=== PATIENT | female | born 1995 | race Caucasian/White ===

== ENCOUNTER → 2018-11-03 11:23 | Outpatient (CLI) | payer OTHER ==
[2018-11-03 12:38] LABS: UDS - AMPHET NEGATIVE QUAL (NEGATIVE); UDS - BARB NEGATIVE QUAL (NEGATIVE); UDS - BENZO NEGATIVE QUAL (NEGATIVE); UDS - COCAINE NEGATIVE QUAL (NEGATIVE); UDS - OPIATE NEGATIVE QUAL (NEGATIVE); UDS - PCP NEGATIVE QUAL (NEGATIVE); UDS - THC NEGATIVE QUAL (NEGATIVE)
[2018-11-03 12:47] LABS: APPEARANCE HAZY (CLEAR); BILIRUBIN NEGATIVE (NEGATIVE); COLOR YELLOW (YELLOW); GLUCOSE NEGATIVE (NEGATIVE); KETONE NEGATIVE (NEGATIVE); NITRITE NEGATIVE (NEGATIVE); PROTEIN NEGATIVE (NEGATIVE); SPECIFIC GRAVITY 1.015 (1.005-1.020)
[2018-11-03 12:48] LABS: BACTERIA FEW /hpf (NONE SEEN); EPITHELIAL CELLS OCC /hpf (0-5); WHITE CELLS - URINE 0-5 /hpf (0-5)
[2018-11-03 14:35] LABS: HEMATOCRIT 22.3 % (36.0-48.0); MCHC 28.3 g/dL (31.0-37.0); MEAN PLATELET VOLUME 10.6 fL (7.4-10.4); RBC 3.23 10x6/uL (4.00-5.40); RDW 19.9 % (11.5-14.5); WBC 12.2 10x3/uL (4.8-10.8)
[2018-11-03 14:36] LABS: HEMOGLOBIN 6.3 g/dL (12-16); MCH 19.5 pg (26.0-34.0)
[2018-11-04 07:23] LABS: RAPID PLASMA REAGIN Non Reactive (Non Reactive)
[2018-11-04 08:15] LABS: HEPATITIS C ANTIBODY <0.1 S/CO RAT (0.0-0.9)
[2018-11-04 15:12] LABS: HGB SOLUBILITY (SICKLE SCREEN) Negative (Negative)
== END | disposition home or self-care (01) ==
LOC: D.LDO 11:23
PROVIDERS: ATTEND Obstetrics & Gynecology
DX: O26.893 Other specified pregnancy related conditions, third trimester (principal); Z3A.32 32 weeks gestation of pregnancy

== ENCOUNTER → 2018-11-08 12:05 | Outpatient (CLI) | payer OTHER ==
[2018-11-08 13:27] LABS: HEMATOCRIT 24.5 % (36.0-48.0); MCHC 27.8 g/dL (31.0-37.0); MCV 70.2 fL (80.0-100.0); MEAN PLATELET VOLUME 10.5 fL (7.4-10.4); RBC 3.49 10x6/uL (4.00-5.40); RDW 21.3 % (11.5-14.5); WBC 15.9 10x3/uL (4.8-10.8)
[2018-11-08 13:39] LABS: CALC OSMOLALITY 269 mosm/kg (275-300); CALCIUM 8.6 mg/dL (8.5-10.1); CARBON DIOXIDE 22.2 mmol/L (21.0-32.0); CHLORIDE - SERUM 103 mmol/L (98-107); CREATININE - SERUM 0.5 mg/dL (0.6-1.3); GLUCOSE 78 mg/dL (74-106); HEMOGLOBIN 6.8 g/dL (12-16); MCH 19.5 pg (26.0-34.0); POTASSIUM - SERUM 4.3 mmol/L (3.5-5.1); SODIUM 135 mmol/L (136-145); UREA NITROGEN 15 mg/dL (7-18); URIC ACID 3.3 mg/dL (2.6-7.2); eGFR NON AFRICAN AMERICAN > 90 mL/min (90-120)
[2018-11-10 18:35] LABS: PROTEIN - URINE 22.8 mg/dL (0.0-11.9)
== END | disposition home or self-care (01) ==
LOC: D.LDO 12:05
PROVIDERS: ATTEND Obstetrics & Gynecology
DX: O99.019 Anemia complicating pregnancy, unspecified trimester (principal); Z3A.00 Weeks of gestation of pregnancy not specified

== ENCOUNTER → 2018-11-12 11:46 | Outpatient (CLI) | payer OTHER ==
[2018-11-12 12:46] LABS: BASOPHILS 0.4 % (0-2); EOSINOPHILS 1.5 % (0-7); HEMATOCRIT 29.8 % (36.0-48.0); HEMOGLOBIN 8.7 g/dL (12-16); IMMATURE GRANULOCYTES 0.8 % (0-5); LYMPHOCYTES 16.3 % (15-50); MCH 21.8 pg (26.0-34.0); MCHC 29.2 g/dL (31.0-37.0); MCV 74.5 fL (80.0-100.0); MEAN PLATELET VOLUME 10.5 fL (7.4-10.4); MONOCYTES 8.6 % (2-11); NEUTROPHILS 72.4 % (40-80); PLATELET COUNT 339 10x3/uL (130-400); RDW 24.1 % (11.5-14.5); WBC 13.7 10x3/uL (4.8-10.8)
[2018-11-12 13:02] LABS: ALBUMIN 2.2 g/dL (3.4-5.0); ALKALINE PHOSPHATASE 199 U/L (46-116); ALT (SGPT) 33 U/L (10-68); BILIRUBIN - INDIRECT 0.14 mg/dL (0.00-1.00); BILIRUBIN - TOTAL 0.24 mg/dL (0.2-1.3); CALC OSMOLALITY 265 mosm/kg (275-300); CALCIUM 8.3 mg/dL (8.5-10.1); CARBON DIOXIDE 22.9 mmol/L (21.0-32.0); CHLORIDE - SERUM 102 mmol/L (98-107); CREATININE - SERUM 0.5 mg/dL (0.6-1.3); GLUCOSE 85 mg/dL (74-106); POTASSIUM - SERUM 3.7 mmol/L (3.5-5.1); PROTEIN - SERUM 6.6 g/dL (6.4-8.2); SODIUM 134 mmol/L (136-145); UREA NITROGEN 9 mg/dL (7-18); URIC ACID 3.6 mg/dL (2.6-7.2); eGFR NON AFRICAN AMERICAN > 90 mL/min (90-120)
== END | disposition home or self-care (01) ==
LOC: D.LDO 11:46
PROVIDERS: ATTEND Obstetrics & Gynecology
DX: O26.893 Other specified pregnancy related conditions, third trimester (principal); Z3A.33 33 weeks gestation of pregnancy

== ENCOUNTER 2018-11-16 17:00 | Outpatient (CLI) | payer OTHER ==
--- NOTE | 2018-11-16 17:00 | NUR ---
dr whyte in unit- informed that pt has voided 50ccx1 and recently voided 100cc. states that pt may want to drink more. no new orders.
--- NOTE | 2018-11-16 17:33 | NUR ---
pt co scd's feeling tight now.
[2018-11-16 17:51] LABS: BASOPHILS 0.2 % (0-2); EOSINOPHILS 1.1 % (0-7); HEMATOCRIT 29.6 % (36.0-48.0); HEMOGLOBIN 8.7 g/dL (12-16); IMMATURE GRANULOCYTES 0.7 % (0-5); LYMPHOCYTES 17.5 % (15-50); MCH 21.9 pg (26.0-34.0); MCHC 29.4 g/dL (31.0-37.0); MCV 74.4 fL (80.0-100.0); MEAN PLATELET VOLUME 10.4 fL (7.4-10.4); MONOCYTES 8.9 % (2-11); NEUTROPHILS 71.6 % (40-80); PLATELET COUNT 312 10x3/uL (130-400); RBC 3.98 10x6/uL (4.00-5.40); RDW 24.9 % (11.5-14.5)
[2018-11-16 18:03] LABS: ALBUMIN 2.4 g/dL (3.4-5.0); ALKALINE PHOSPHATASE 186 U/L (46-116); ALT (SGPT) 17 U/L (10-68); BILIRUBIN - TOTAL 0.28 mg/dL (0.2-1.3); CALC OSMOLALITY 267 mosm/kg (275-300); CALCIUM 8.8 mg/dL (8.5-10.1); CARBON DIOXIDE 20.1 mmol/L (21.0-32.0); CHLORIDE - SERUM 101 mmol/L (98-107); CREATININE - SERUM 0.5 mg/dL (0.6-1.3); GLUCOSE 93 mg/dL (74-106); POTASSIUM - SERUM 3.7 mmol/L (3.5-5.1); PROTEIN - SERUM 7.1 g/dL (6.4-8.2); SODIUM 134 mmol/L (136-145); UREA NITROGEN 12 mg/dL (7-18); eGFR NON AFRICAN AMERICAN > 90 mL/min (90-120)
[2018-11-16 18:09] LABS: BILIRUBIN - DIRECT 0.07 mg/dL (0.00-0.30); BILIRUBIN - INDIRECT 0.21 mg/dL (0.00-1.00); URIC ACID 3.4 mg/dL (2.6-7.2)
[2018-11-19] MEDS ORDERED: PRENAVITE1 TAB PO (22:58)
[2018-11-19] MEDS ORDERED: ACETAMINOPHEN325 MG (22:59)
== END 2018-11-17 18:25 | disposition home or self-care (01) ==
LOC: D.LABREF 17:00 → D.LD 17:00 → D.LABREF 11-17 18:25
PROVIDERS: ATTEND Obstetrics & Gynecology
DX: O16.3 Unspecified maternal hypertension, third trimester (principal); Z3A.34 34 weeks gestation of pregnancy

== ENCOUNTER → 2018-11-19 09:46 | Outpatient (CLI) | payer OTHER ==
[~2018-11-19 09:46] MED LIST: ACETAMINOPHEN325 MG; PRENAVITE1 TAB PO
== END | disposition home or self-care (01) ==
LOC: D.LDO 09:46
PROVIDERS: ATTEND Obstetrics & Gynecology
DX: O16.3 Unspecified maternal hypertension, third trimester (principal); Z3A.34 34 weeks gestation of pregnancy

== ENCOUNTER → 2018-11-19 20:32 | Outpatient (CLI) | payer OTHER ==
[2018-11-19 21:33] LABS: UDS - AMPHET NEGATIVE QUAL (NEGATIVE); UDS - BARB NEGATIVE QUAL (NEGATIVE); UDS - BENZO NEGATIVE QUAL (NEGATIVE); UDS - COCAINE NEGATIVE QUAL (NEGATIVE); UDS - OPIATE NEGATIVE QUAL (NEGATIVE); UDS - PCP NEGATIVE QUAL (NEGATIVE); UDS - THC NEGATIVE QUAL (NEGATIVE)
[2018-11-19 21:37] LABS: APPEARANCE CLEAR (CLEAR); BILIRUBIN NEGATIVE (NEGATIVE); COLOR YELLOW (YELLOW); GLUCOSE NEGATIVE (NEGATIVE); KETONE NEGATIVE (NEGATIVE); NITRITE NEGATIVE (NEGATIVE); PROTEIN NEGATIVE (NEGATIVE); UROBILINOGEN NORMAL (NORMAL)
[2018-11-19 21:38] LABS: BACTERIA MANY /hpf (NONE SEEN); EPITHELIAL CELLS 0-5 /hpf (0-5); RED CELLS - URINE 0-5 /hpf (0-5); WHITE CELLS - URINE 0-5 /hpf (0-5)
[2018-11-19 21:45] LABS: HEMATOCRIT 31.6 % (36.0-48.0); HEMOGLOBIN 9.3 g/dL (12-16); MCH 22.5 pg (26.0-34.0); MCHC 29.4 g/dL (31.0-37.0); MCV 76.5 fL (80.0-100.0); RBC 4.13 10x6/uL (4.00-5.40); RDW 24.4 % (11.5-14.5); WBC 13.2 10x3/uL (4.8-10.8)
[2018-11-19 22:08] LABS: CALC OSMOLALITY 273 mosm/kg (275-300); CALCIUM 8.4 mg/dL (8.5-10.1); CARBON DIOXIDE 21.9 mmol/L (21.0-32.0); CHLORIDE - SERUM 103 mmol/L (98-107); CREATININE - SERUM 0.5 mg/dL (0.6-1.3); GLUCOSE 93 mg/dL (74-106); POTASSIUM - SERUM 3.8 mmol/L (3.5-5.1); SODIUM 137 mmol/L (136-145); UREA NITROGEN 12 mg/dL (7-18); URIC ACID 3.5 mg/dL (2.6-7.2); eGFR NON AFRICAN AMERICAN > 90 mL/min (90-120)
== END | disposition home or self-care (01) ==
LOC: D.LDO 20:32
PROVIDERS: ATTEND Obstetrics & Gynecology
DX: O26.893 Other specified pregnancy related conditions, third trimester (principal); Z3A.34 34 weeks gestation of pregnancy; R11.0 Nausea

== ENCOUNTER → 2018-11-24 13:53 | Outpatient (CLI) | payer OTHER ==
[~2018-11-24 13:53] MED LIST changes: +NORMODYNE / TR100 MG PO
[2018-11-24 14:52] LABS: BASOPHILS 0.3 % (0-2); EOSINOPHILS 1.2 % (0-7); HEMATOCRIT 34.3 % (36.0-48.0); HEMOGLOBIN 10.4 g/dL (12-16); IMMATURE GRANULOCYTES 0.5 % (0-5); MCH 23.4 pg (26.0-34.0); MCHC 30.3 g/dL (31.0-37.0); MCV 77.1 fL (80.0-100.0); MEAN PLATELET VOLUME 10.4 fL (7.4-10.4); PLATELET COUNT 273 10x3/uL (130-400); RBC 4.45 10x6/uL (4.00-5.40); RDW 25.8 % (11.5-14.5); WBC 13.9 10x3/uL (4.8-10.8)
[2018-11-24 15:09] LABS: ALBUMIN 2.4 g/dL (3.4-5.0); ALKALINE PHOSPHATASE 180 U/L (46-116); ALT (SGPT) 17 U/L (10-68); BILIRUBIN - TOTAL 0.33 mg/dL (0.2-1.3); CALC OSMOLALITY 265 mosm/kg (275-300); CALCIUM 9.2 mg/dL (8.5-10.1); CARBON DIOXIDE 23.5 mmol/L (21.0-32.0); CHLORIDE - SERUM 101 mmol/L (98-107); CREATININE - SERUM 0.4 mg/dL (0.6-1.3); GLUCOSE 73 mg/dL (74-106); POTASSIUM - SERUM 3.9 mmol/L (3.5-5.1); PROTEIN - SERUM 7.3 g/dL (6.4-8.2); SODIUM 134 mmol/L (136-145); UREA NITROGEN 11 mg/dL (7-18); eGFR NON AFRICAN AMERICAN > 90 mL/min (90-120)
[2018-11-24 15:10] LABS: BILIRUBIN - DIRECT 0.08 mg/dL (0.00-0.30); BILIRUBIN - INDIRECT 0.25 mg/dL (0.00-1.00); URIC ACID 3.4 mg/dL (2.6-7.2)
[2018-11-24 15:24] LABS: UDS - AMPHET NEGATIVE QUAL (NEGATIVE); UDS - BARB NEGATIVE QUAL (NEGATIVE); UDS - BENZO NEGATIVE QUAL (NEGATIVE); UDS - COCAINE NEGATIVE QUAL (NEGATIVE); UDS - OPIATE NEGATIVE QUAL (NEGATIVE); UDS - PCP NEGATIVE QUAL (NEGATIVE); UDS - THC NEGATIVE QUAL (NEGATIVE)
[2018-11-24 15:36] LABS: APPEARANCE CLEAR (CLEAR); BILIRUBIN NEGATIVE (NEGATIVE); COLOR YELLOW (YELLOW); GLUCOSE NEGATIVE (NEGATIVE); KETONE NEGATIVE (NEGATIVE); NITRITE NEGATIVE (NEGATIVE); PROTEIN NEGATIVE (NEGATIVE); UROBILINOGEN NORMAL (NORMAL)
[2018-11-24 15:37] LABS: BACTERIA MODERATE /hpf (NONE SEEN); EPITHELIAL CELLS OCC /hpf (0-5); WHITE CELLS - URINE 0-5 /hpf (0-5)
[2018-11-26 19:25] LABS: PROTEIN - URINE 14.6 mg/dL (0.0-11.9)
== END | disposition home or self-care (01) ==
LOC: D.LDO 13:53
PROVIDERS: ATTEND Obstetrics & Gynecology
DX: O16.3 Unspecified maternal hypertension, third trimester (principal); Z3A.35 35 weeks gestation of pregnancy

== ENCOUNTER 2018-11-26 18:49 | Outpatient (CLI) | payer OTHER ==
[~2018-11-26 18:49] MED LIST changes: -NORMODYNE / TR100 MG PO
[2018-11-26 21:04] LABS: BASOPHILS 0.2 % (0-2); HEMATOCRIT 32.5 % (36.0-48.0); HEMOGLOBIN 9.9 g/dL (12-16); IMMATURE GRANULOCYTES 0.6 % (0-5); LYMPHOCYTES 20.9 % (15-50); MCH 23.7 pg (26.0-34.0); MCHC 30.5 g/dL (31.0-37.0); MCV 77.8 fL (80.0-100.0); MEAN PLATELET VOLUME 10.1 fL (7.4-10.4); MONOCYTES 9.1 % (2-11); NEUTROPHILS 68.2 % (40-80); PLATELET COUNT 263 10x3/uL (130-400); RBC 4.18 10x6/uL (4.00-5.40); RDW 25.9 % (11.5-14.5); WBC 12.7 10x3/uL (4.8-10.8)
[2018-11-26 21:17] LABS: ALBUMIN 2.4 g/dL (3.4-5.0); ALKALINE PHOSPHATASE 173 U/L (46-116); ALT (SGPT) 17 U/L (10-68); BILIRUBIN - TOTAL 0.19 mg/dL (0.2-1.3); CALC OSMOLALITY 272 mosm/kg (275-300); CALCIUM 9.2 mg/dL (8.5-10.1); CARBON DIOXIDE 22.3 mmol/L (21.0-32.0); CHLORIDE - SERUM 104 mmol/L (98-107); CREATININE - SERUM 0.5 mg/dL (0.6-1.3); GLUCOSE 85 mg/dL (74-106); POTASSIUM - SERUM 4.1 mmol/L (3.5-5.1); PROTEIN - SERUM 6.3 g/dL (6.4-8.2); SODIUM 137 mmol/L (136-145); UREA NITROGEN 13 mg/dL (7-18); eGFR NON AFRICAN AMERICAN > 90 mL/min (90-120)
== END 2018-11-27 10:23 | disposition home or self-care (01) ==
LOC: D.LDO 18:49 → D.LD 21:52 → D.LDO 11-27 10:23
PROVIDERS: ATTEND Obstetrics & Gynecology
DX: O26.893 Other specified pregnancy related conditions, third trimester (principal); Z3A.36 36 weeks gestation of pregnancy

== ENCOUNTER → 2018-11-27 20:25 | Outpatient (CLI) | payer OTHER ==
[~2018-11-27 20:25] MED LIST changes: +NORMODYNE / TR100 MG PO
== END | disposition home or self-care (01) ==
LOC: D.LDO 20:25
PROVIDERS: ATTEND Obstetrics & Gynecology
DX: O26.893 Other specified pregnancy related conditions, third trimester (principal); Z3A.36 36 weeks gestation of pregnancy

== ENCOUNTER 2018-11-30 15:20 | Inpatient (IN) | payer OTHER ==
[~2018-11-30] VITALS: Ht 162.6 cm; Wt 93.4 kg
[~2018-11-30 15:20] MED LIST changes: -NORMODYNE / TR100 MG PO
[2018-11-30 15:40] LABS: BASOPHILS 0.2 % (0-2); EOSINOPHILS 0.7 % (0-7); HEMATOCRIT 34.1 % (36.0-48.0); HEMOGLOBIN 10.3 g/dL (12-16); MCH 23.8 pg (26.0-34.0); MCHC 30.2 g/dL (31.0-37.0); MCV 78.8 fL (80.0-100.0); MEAN PLATELET VOLUME 10.7 fL (7.4-10.4); MONOCYTES 11.7 % (2-11); NEUTROPHILS 65.4 % (40-80); PLATELET COUNT 281 10x3/uL (130-400); RBC 4.33 10x6/uL (4.00-5.40); RDW 27.3 % (11.5-14.5); WBC 13.9 10x3/uL (4.8-10.8)
[2018-11-30 15:54] LABS: ALT (SGPT) 19 U/L (10-68); CALC OSMOLALITY 275 mosm/kg (275-300); CALCIUM 9.2 mg/dL (8.5-10.1); CARBON DIOXIDE 23.5 mmol/L (21.0-32.0); CHLORIDE - SERUM 103 mmol/L (98-107); CREATININE - SERUM 0.4 mg/dL (0.6-1.3); GLUCOSE 88 mg/dL (74-106); POTASSIUM - SERUM 4.5 mmol/L (3.5-5.1); SODIUM 139 mmol/L (136-145); UREA NITROGEN 9 mg/dL (7-18); URIC ACID 3.6 mg/dL (2.6-7.2); eGFR NON AFRICAN AMERICAN > 90 mL/min (90-120)
--- NOTE | 2018-11-30 19:03 | NUR ---
ADMISSION ASSESSMENT AND HISTORY STARTED
[2018-11-30] MEDS ORDERED: NORMODYNE / TR100 MG PO (19:04)
--- NOTE | 2018-11-30 19:14 | NUR ---
ADMISSION ASSESSMENT COMPLETED, HAD TO REENTER ASSESSMENT AND HISTORY DUE TO PT HAVING 2 ACCOUNT NUMBERS, SEE ACOUNT NUMBER [id number]
[2018-11-30 19:46] LABS: HEMATOCRIT 31.5 % (36.0-48.0); HEMOGLOBIN 9.6 g/dL (12-16); MCH 23.9 pg (26.0-34.0); MCHC 30.5 g/dL (31.0-37.0); MCV 78.4 fL (80.0-100.0); MEAN PLATELET VOLUME 10.1 fL (7.4-10.4); RBC 4.02 10x6/uL (4.00-5.40); RDW 27.3 % (11.5-14.5); WBC 12.7 10x3/uL (4.8-10.8)
[2018-11-30 22:15] VITALS: BP 133/71
--- NOTE | 2018-11-30 22:15 | NUR ---
RECEIVED PT VIA BED FROM [facility] POST C/S PER DR CARDOZA, PT TO ROOM 1278, IV IN RIGHT WRIST AREA WITH NS WITH PITOCIN TO PUMP INFUSING AT 125 ML/HR, FF, ML, U/U, LITE BLEEDING NOTED WITH NO CLOTS, BIKINI INC WITH SMALL DRESSING INTACT WITH SMALL DRAINAGE NOTED, ICE PACK TO ABD, ALANIZ CATH INTACT DRAINING DARK YELLOW URINE, SCD'S CONNECTED TO PUMP AND WORKING PROPERLY, VS INITIATED, PT REQUESTED AND SERVED ICE CHIPS, PT ORIENTED TO ROOM, BED IN LOW POSITION, SIDE RAILS X 2, CALL LIGHT IN REACH
[2018-11-30 22:30] VITALS: BP 133/71
[2018-11-30 22:45] VITALS: BP 143/72
--- NOTE | 2018-11-30 22:45 | NUR ---
PT C/O INC PAIN, INFORMED PT I WILL CHECK TO SEE WHAT IS ORDERED, PT STATES "WITH MY OTHER C/S, I TOOK IBUPROFEN AND IT SEEMED TO REALLY HELP"
[2018-11-30 23:00] VITALS: BP 154/81
--- NOTE | 2018-11-30 23:00 | NUR ---
DR CARDOZA ON UNIT, INFORMED DR CARDOZA PT REPORTED TAKING IBUPROFEN IN PAST AND THAT IT REALLY SEEMED TO HELP, ORDERS RECEIVED FOR TORADOL
--- NOTE | 2018-11-30 23:09 | NUR ---
ADM TORADOL SIVP PER MD ORDERS, SEE EMAR
[2018-11-30 23:30] VITALS: BP 136/84
[2018-11-30 23:48] VITALS: BP 136/92
--- NOTE | 2018-11-30 23:48 | NUR ---
VS FINISHED, BRIAN CARE DONE WITH WET WARM WASH CLOTHS, BRIAN PAD AND BLUE CHUX CHANGED, FRESH ICE PACK TO ABD, EMPTIED 600 MLS OF DARK YELLOW URINE FROM ALANIZ, SERVED [place] SODA, SANDWICH TRAY SERVED TO FOB, DENIES FURTHER NEEDS
--- NOTE | 2018-12-01 00:35 | NUR ---
PT HOLDING BABY, RATES INC PAIN 08/15, DENIES NEEDS AT THIS TIME
--- NOTE | 2018-12-01 01:00 | NUR ---
PT SAFETY GLASS INSTALLER LIGHT, REQUESTED AND PROVIDED INK PEN, DENIES FURTHER NEEDS, FOB AT BEDSIDE
--- NOTE | 2018-12-01 02:18 | NUR ---
PT HOLDING BABY, NEW BAG OF NS WITH PITOCIN HUNG PER MD ORDERS, SEE EMAR, SCD'S CONTINUE ON AND WORKING PROPERLY, PT DENIES NEEDS, BED IN LOW POSITION, SIDE RAILS X 2, CALL LIGHT IN REACH
[2018-12-01 02:23] LABS: HEMATOCRIT 31.2 % (36.0-48.0); HEMOGLOBIN 9.5 g/dL (12-16); MCH 23.6 pg (26.0-34.0); MCHC 30.4 g/dL (31.0-37.0); MCV 77.6 fL (80.0-100.0); MEAN PLATELET VOLUME 9.6 fL (7.4-10.4); PLATELET COUNT 243 10x3/uL (130-400); RBC 4.02 10x6/uL (4.00-5.40); RDW 27.1 % (11.5-14.5); WBC 20.4 10x3/uL (4.8-10.8)
[2018-12-01 02:38] VITALS: BP 127/74; Ht 162.6 cm; Wt 93.4 kg
--- NOTE | 2018-12-01 02:52 | NUR ---
SUICIDE SCREENING COMPLETE, PT REPORTS ONLY TIME SHE HAD THOUGHT AND ATTEMPTED SUICIDE WAS WHEN SHE WAS 13 YEARS OLD
[2018-12-01 02:53] LABS: LYMPHOCYTES 16 % (15-50); MONOCYTES 1 % (2-11); NEUTROPHILS 83 % (40-80); PLATELET ESTIMATE NORMAL
--- NOTE | 2018-12-01 04:14 | NUR ---
PT IS BOTTLE FEEDING BABY AT THIS TIME, INFORMED PT THAT I WILL COME BACK AND DO VS, PT VERBALIZES UNDERSTANDING
[2018-12-01 05:41] VITALS: BP 131/75
--- NOTE | 2018-12-01 05:41 | NUR ---
PT FILLER FEEDER LIGHT, PT FINISHED BOTTLE FEEDING , VS OBTAINED, BRIAN CARE DONE WITH WET WARM WASH CLOTHS, LITE BLEEDING NOTED WITH NO CLOTS, FRESH ICE PACK TO ABD, I&O'S COLLECTED, SCD'S CONTINUE ON AND WORKING PROPERLY, ADM PERCOCET PO AND TORADOL SIVP PER MD ORDERS, SEE EMAR, PT REQUESTED AND SERVED ICE CHIPS AND FRESH H20, INFANT TO NSY VIA OPEN CRIB CART PER THIS RN, PT DENIES FURTHER NEEDS, FOB AT BEDSIDE
--- NOTE | 2018-12-01 07:00 | NUR ---
SHIFT REPORT TO DAY SHIFT
[2018-12-01 07:41] VITALS: BP 134/74
--- NOTE | 2018-12-01 07:55 | NUR ---
ASSESSMENT DONE. VERBAL RESPONSES APPRO TO QUESTIONS. STATES IS TIRED. STATES SHE SLEPT SOME THIS MORNING. ABD SOFT AND BOWEL SOUNDS PRESENT. SMALL LOCHIA NOTED ON PAD. ICE CAP TO INCISION SITE. DENIES NEEDS AT THIS TIME.
--- NOTE | 2018-12-01 09:43 | NUR ---
RESTING IN BED- INFANT IN ARMS. DENIES NEEDS. REPOSITIONING SELF IN BED.
--- NOTE | 2018-12-01 11:07 | NUR ---
RINGS CALL LIGHT -REQUESTING PAIN MEDICATION- RATES PAIN A 6-7 ON SCALE OF 0-10. MED TO BE GIVEN.
--- NOTE | 2018-12-01 11:11 | NUR ---
MED GIVEN. MOVING ABOUT IN BED. ABD DRESSING CD&I. SCANT LOCHIA NOTED ON PAD.
[2018-12-01 12:31] VITALS: BP 144/90
--- NOTE | 2018-12-01 12:35 | NUR ---
TORADOL GIVEN. VS DONE. PT SITTING UP IN BED HOLDING .
--- NOTE | 2018-12-01 13:05 | NUR ---
REPORT PHONED TO DR CARDOZA- ORDERS RECEIVED TO NORMALIZE PT AND TO START ANTIBIOTICS X 2 DOSES. POC DISCUSSED WITH PT.
--- NOTE | 2018-12-01 13:52 | NUR ---
reg diet served per pt request
--- NOTE | 2018-12-01 14:29 | NUR ---
report of bp's to dr whyte- new orders received.
--- NOTE | 2018-12-01 14:53 | NUR ---
iv changed to saline lock- flushed with ns. joseph cath removed- 2500cc urine emptied from bag. pt instructed to call nurse before getting up.
[2018-12-01 16:03] VITALS: BP 132/86
--- NOTE | 2018-12-01 16:05 | NUR ---
baby in mothers arms. denies needing to void. states is passing flatus.
--- NOTE | 2018-12-01 16:15 | NUR ---
up to bathroom- voided 600cc blood tinged urine. states does not want to shower until family brings conditioner for her hair. partial linen change done. returns to bed. fundus u1/firm. requests pain medication- rates pain a 6 on scale of 0-10. pain med given.
--- NOTE | 2018-12-01 16:26 | NUR ---
baby in mothers arms- feeding infant. states is having some pain both shoulders. states she is passing some gas. o2 sat 97. encourged to moved about more.
--- NOTE | 2018-12-01 16:57 | OP ---
PATIENT NAME: JAMEY DEL CID MEDICAL RECORD: [id number] :94 LOCATION:[id number] ADMISSION DATE:11/30/18 SURGEON: RUSTY CARDOZA MD DATE OF OPERATION: 11/30/2018 PREOPERATIVE DIAGNOSES: 1. Chronic hypertension. 2. Superimposed preeclampsia. 3: at 36 weeks gestational age. 4. History of prior section. 5. Nonreassuring monitoring. POSTOPERATIVE DIAGNOSES: 1. Chronic hypertension. 2. Superimposed preeclampsia. 3: at 36 weeks gestational age. 4. History of prior section. 5. Nonreassuring monitoring. 6. Pelvic adhesions. PROCEDURES: 1. Repeat low transverse section. 2. Lysis of adhesions. SURGEON: Rusty Cardoza MD SOLAR PANEL INSTALLER: Андрей See ANESTHESIOLOGIST: Dr. العلي ANESTHETIC: Spinal. FINDINGS: Viable , vertex presentation, Apgars 8 and 9, weight 2961 grams. Dense adhesions of the uterus to the anterior abdominal wall on the right of midline. What was visualized of the tubes and ovaries unremarkable. SPECIMEN REMOVED: Placenta. SPECIMEN DISPOSITION: Discarded. FLUIDS: 1900 cc of lactated Ringer's. URINE OUTPUT: 100 cc of clear urine. ESTIMATED BLOOD LOSS: 700 cc. DRAINS: Villalobos to gravity. COMPLICATIONS: None. INDICATIONS: The patient is a 23-year-old multiparous female with chronic hypertension, superimposed preeclampsia at 36 weeks' gestation. The patient had noted NST earlier with late decelerations but maintained good beat to beat variability. A biophysical profile was performed, which is 4/10. The patient is counseled and has repeat section performed. OPERATIVE REPORT [id number] JAMEY DEL CID DESCRIPTION OF PROCEDURE: After informed consent was assured, the patient was taken to the operating room where anesthetic is obtained. The patient is now prepped and draped after having a Villalobos started. Assessment of the anesthetic finds it to be adequate. Incision was made over the old scar, carried down to the underlying layer of the fascia, which was opened in the midline and extended laterally. Rectus bellies were now dissected free superiorly and inferiorly and then in the midline. The peritoneum was entered sharply and the peritoneal opening extended. DeLee all-purpose retractor was inserted after spreading the rectus muscles. Low transverse hysterotomy is now performed and delivered onto the abdomen atraumatically. Light meconium fluid is noted. The infant's cord was doubly clamped and cut and the infant was passed to the awaiting attendant. Placenta was delivered via Crede maneuver. Uterus was not exteriorized, cleared of all clot and debris and the hysterotomy closed with a running locked stitch of chromic. The pelvis was irrigated and irrigant removed. Inspection of the hysterotomy revealed adequate hemostasis. The fascia was closed with looped PDS in a running fashion. After securing this ligature, subcutaneous tissues were irrigated, bleeding vessels cauterized, and the skin reapproximated with tomi. Sterile dressing is applied. Sponge, lap, needle counts were correct times 2. TRANSINT:[id number] Voice Confirmation ID: [id number] DOCUMENT ID: [id number] RUSTY CARDOZA MD at 1657 CC: [id number] DICTATION DATE: 11/30/182126 LIQUID WASTE TREATMENT PLANT OPERATOR: 12/01/18 0515 ADM IN [facility] [address] [place] [address]
--- NOTE | 2018-12-01 17:30 | NUR ---
states that pain is down to a 2 and denies any shoulder pain at this time. states that she has passed gas. denies wanting to shower until gets back with conditioner.
--- NOTE | 2018-12-01 18:00 | NUR ---
up to void- voided 850cc clear urine. into shower- tolerated well. linens changed. dressing removed after out of shower- tomi intact. instructed on care of incision. returns to bed. denies other needs.
--- NOTE | 2018-12-01 19:57 | NUR ---
PT PREPARING TO FEED . SHIFT ASSESSMENT COMPLETED. REQUESTS V/S BE TAKEN FOLLOWING FEEDING INFANT. BREATH SOUNDS CTA BILATERALLY, REGULAR RATE AND RYMTHM. BOWELS SOUNDS PRESENT AND ACTIVE X4, REPORTS THAT SHE IS PASSING FLATUS AND VOIDING WITHOUT DIFFICULTY. FUNDUS FIRM, MIDLINE AND U2 WITH SCANT RUBRA LOCHIA, NO CLOTS NOTED. PT REPORT THAT SHE JUST VOIDED, 650 MLS EMPTIED FROM HAT, AND SHE CHANGED PERIPADS FOLLOWING VOID, NO CLOTS NOTED IN HAT. PT DENIES PASSING CLOTS. PAIN 8/10, INCISIONAL BURNING/STINGING, ABD ACHING, SORENESS AND CRAMPING, PERCOCET AND TORADOL GIVEN PER ORDER AND REQUEST. PIV TO RIGHT WRIST, FLUSHES WELL, NO S/S OF INFILITRATION NOTED. LOWER TRANSVERSE ABD INCISION WELL APPROXIMATED, GLUE INTACT. COVERED WITH PERIPAD AND INSTRUCTED ON INCISIONAL CARE. PT REPORTS THAT SHE SHOWERED ON DAY SHIFT AND LINENS HAD BEEN CHANGED. ICE AND SODA PROVIDED PER REQUEST. DENIES ADDITIONAL NEEDS. PLACED IN ARMS PER PT REQUEST. BED IN LOW POSITION WITH UPPER SIDE RAILS RAISED X2. CALL LIGHT AND PHONE WITHIN REACH. WILL CONTINUE TO MONITOR.
--- NOTE | 2018-12-01 20:30 | NUR ---
PAIN REASSESSMENT COMPLETED. 08/15, DENIES NEED FOR ADDITIONAL INTERVENTION. CURRENTLY CARING FOR , INSTRUCTED ON TECHNIQUES TO BURP INFANT WITH UNDERSTANDING DEMONSTRATED. WILL CONTINUE TO MONITOR AND ASSIST PRN.
--- NOTE | 2018-12-01 21:18 | NUR ---
AMBULATORY IN [place] WITH SIGNIFICANT OTHER. STEADY GAIT NOTED, DENIES NEEDS. STATES THAT SHE WILL CALL USING CALL LIGHT WHEN BACK TO ROOM FOR V/S CHECK.
[2018-12-01 21:41] VITALS: BP 133/85
--- NOTE | 2018-12-01 21:41 | NUR ---
BACK TO ROOM FROM AMBULATING IN [place]. VSS. PAIN 2-3, DENIES NEED FOR INTERVENTION. ICE AND ICE WATER PROVIDED PER PT REQUEST. DENIES ADDITIONAL NEEDS. REFUSES SCD'S. EDUCATED ON USE AND IMPORTANCE OF SCD'S, STATES THAT SHE WILL CONTINUE TO AMBULATE. REINFORCED COUGHING, DEEP BREATHING, AND USE OF INCENTIVE SPIROMETER, VERBALIZES UNDERSTANDING AND REPORTS THAT SHE HAS BEEN DOING COUGHING, DEEP BREATHING AND USING INCENTIVE SPIROMETER. BED IN LOW POSITION WITH UPPER SIDE RAILS RAISED X2. CALL LIGHT AND PHONE WITHIN REACH. WILL CONTINUE TO MONITOR AND ASSIST PRN.
--- NOTE | 2018-12-01 21:50 | NUR ---
2 GM IVPB ANCEF HUNG PER ORDER TO RIGHT WRIST PIV. IV FLUSHES WITHOUT DIFFICULTY, NO S/S OF INFILTRATION NOTED.
--- NOTE | 2018-12-01 22:22 | NUR ---
ANCEF INFUSION COMPLETED, PIV SL. UP TO BATHROOM. PLACED IN OPEN CRIB. PAIN 3/10, DENIES NEED FOR INTERVENTION. BED IN LOW POSITION WITH UPPER SIDE RAILS RAISED X2. CALL LIGHT AND PHONE WITHIN REACH. WILL CONTINUE TO MONITOR AND ASSIST PRN.
--- NOTE | 2018-12-02 00:01 | NUR ---
PATIENT SITTING UP IN BED HOLDING INFANT. STATES PAIN 8 OUT OF 10. PRN PERCOCET 10/325 ADMINISTERED PO AT THIS TIME. PATIENT DENIES ANY FURTHER NEEDS. BED IN LOWEST POSITION, SIDE RAILS UP X 2, C/L AND WATER WITHIN REACH.
[2018-12-02 00:52] VITALS: BP 131/77
--- NOTE | 2018-12-02 00:52 | NUR ---
GETTING BACK TO BED FOLLOWING VOIDING. VSS. FUNDUS REMAINS FIRM, MIDLINE AND U2 WITH SMALL AMT RUBRA LOCHIA. NO CLOTS NOTED. INCISION REMAINS WELL APPROXIMATED WITH GLUE INTACT. ICE PROVIDED PER REQUEST. REFUSES SCD'S. BED IN LOW POSITION WITH UPPER SIDE RAILS RAISED X2. CALL LIGHT AND PHONE WITHIN REACH. WILL CONTINUE TO MONITOR AND ASSIST PRN.
--- NOTE | 2018-12-02 03:15 | NUR ---
PATIENT SITTING UP IN BED HOLDING INFANT. DENIES ANY NEEDS OR CONCERNS AT THIS TIME. BED IN LOWEST POSITION, SIDE RAILS UP X 2, C/L AND WATER WITHIN REACH.
[2018-12-02 04:07] VITALS: BP 134/77
--- NOTE | 2018-12-02 04:07 | NUR ---
C/O PAIN, 8/10, ABD SORENESS, ACHING, AND CRAMPING WITH INCISIONAL BURNING AND STINGING. PERCOCET AND MOTRIN GIVEN PER ORDER AND PT REQUEST. VSS. FUNDUS REMAINS FIRM, MIDLINE AND U2 WITH SCANT RUBRA LOCHIA. INCISION WELL APPROXIMATED WITH YANA INTACT, NO DRAINAGE NOTED, NO S/S OF INFECTION. ICE AND SODA PROVIDED. DENIES ADDITIONAL NEED. BED IN LOW POSITION WITH UPPER SIDE RAILS RAISED X2. CALL LIGHT AND PHONE WITHIN REACH. WILL CONTINUE TO MONITOR.
--- NOTE | 2018-12-02 04:50 | NUR ---
PAIN REASSESSMENT COMPLETED, 09/12, DENIES NEED FOR ADDITIONAL INTERVENTION. ICE PROVIDED PER PT REQUEST. BED IN LOW POSITION WITH UPPER SIDE RAILS RAISED X2. CALL LIGHT WITHIN REACH. WILL CONTINUE TO MONITOR AND ASSIST PRN.
--- NOTE | 2018-12-02 05:21 | NUR ---
ANCEF HUNG PER ORDER TO INFUSE OVER 30 MINUTES. R WRIST PIV FLUSHES WITHOUT DIFFICULTY, NO S/S OF INFILTRATION NOTED.
--- NOTE | 2018-12-02 05:56 | NUR ---
PATIENT SITTING UP IN BED HOLDING INFANT. ANCEF COMPLETE. IV SALINE LOCKED AT THIS TIME. PATIENT DENIES ANY FURTHER NEEDS. BED IN LOWEST POSITION, SIDE RAILS UP X 2, C/L AND WATER WITHIN REACH.
[2018-12-02 07:21] LABS: RAPID PLASMA REAGIN Non Reactive (Non Reactive)
[2018-12-02 07:56] VITALS: BP 137/69
--- NOTE | 2018-12-02 07:56 | NUR ---
SHIFT ASSESSMENT COMPLETED AT THIS TIME. PT IS AAOX3. C/O PAIN 5/10 AT THIS TIME. ADV WILL BRING MEDICATIONS WHEN AVAILABLE. PT VERBALIZED UNDERSTANDING. HR-RRR, PPP, BREATH SOUNDS CLEAR & UNLABORED X2. BOWEL SOUNDS ACTIVE X4. FUNDUS FIRM, ML, U/2. SMALL LOCHIA REPORTED WHEN VOIDING. NO CLOTS REPORTED. PT PLAN TO D/C OR ROOM IN TODAY. ROOMING IN POLICY EXPLAINED TO PT AND PT IS AGREEABLE TO STATUS CHANGE IF DOES NOT D/C TO HOME TODAY. PT DENIES FURTHER NEEDS AT THIS TIME. BED LOW, WHEELS LOCKED, CALL LIGHT AND PHONE WITHIN REACH. SIDE RAILS UP X2.
--- NOTE | 2018-12-02 08:13 | NUR ---
PT CALLS OUT NUMERICAL CONTROL TOOL PROGRAMMER LIGHT REQUESTING PAIN MEDICATION. PERCOCET 10/325MG X1 TAB GIVEN FOR PAIN RATED 7/10 IN ABD AT THIS TIME. NBN RN IN ROOM AT THIS TIME DISCUSSING INFANT CARE. PT DENIES FURTHER NEEDS. WILL CONTINUE TO MONITOR.
--- NOTE | 2018-12-02 09:15 | NUR ---
ROUNDS MADE. PROCARDIA XL GIVEN PER ORDERS. SEE EMAR FOR ADMINISTRATION. PT DENIES PAIN OR NEEDS AT THIS TIME.
--- NOTE | 2018-12-02 10:45 | NUR ---
PT STATES THAT SHE CAN CALL SOMEONE TO COME GET PRESCRIPTIONS TO BE FILLED AND THAT SHE WOULD LIKE TO ROOM IN OVER NIGHT INSTEAD OF LEAVING SO LATE IN THE DAY. DENIES FURTHER NEEDS AT THIS TIME.
--- NOTE | 2018-12-02 11:02 | NUR ---
PT RINGS CALL LIGHT REQUESTING LIGHTS DIMMED IN ROOM. SAME PROVIDED. NO FURTHER NEEDS VOICED.
--- NOTE | 2018-12-02 12:40 | NUR ---
PT STATES THAT SHE WILL NEED SOMEONE TO CALL SPENCER DOWNEY FOR HER TO EXPLAIN THE NEED FOR THE PRESCRIPTIONS TO BE FILLED. ADVISED WILL DO THE SAME.
--- NOTE | 2018-12-02 12:55 | NUR ---
PERCOCET 10/325MG X1 TAB AND MOTRIN 600MG X1 TAB GIVEN FOR PAIN RATED 8/10 AND PER PT REQUEST AT THIS TIME. PT SITTING UP WITH UP IN ARMS. DENIES NEEDS. ADV PT THAT AFIAS NASREEN WILL BE HERE AROUND 3 PM TO SEO COORDINATOR PRESCRIPTIONS SO THAT SHE CAN ROOM IN. UNDERSTANDING VERBALIZED.
--- NOTE | 2018-12-02 13:46 | NUR ---
PAIN REASSESSMENT COMPLETED. PT RATES PAIN 3/10 AND TOLERABLE. LIGHTS DIMMED PER PT REQUEST. NO FURTHER NEEDS VOICED AT THIS TIME.
--- NOTE | 2018-12-02 14:49 | NUR ---
PT RESTING ON RT SIDE. RESP EVEN & UNLABORED. PT LEFT UNDISTURBED AT THIS TIME.
--- NOTE | 2018-12-02 15:02 | NUR ---
PT RINGS CALL LIGHT REQUESTING BOTTLE FOR INFANT. ENCOURAGED PT TO CALL NBN AT 1280. PT IS AGREEABLE. NO FURTHER NEEDS VOICED AT THIS TIME.
--- NOTE | 2018-12-02 16:48 | NUR ---
REGULAR MEAL TRAY SERVED. PT REQUESTS AND RECEIVED CUP OF ICE. NO FURTHER NEEDS VOICED. WILL CONT TO MONITOR PRN.
--- NOTE | 2018-12-02 17:05 | NUR ---
CUP OF ICE PROVIDED PER PT REQUEST. PT ALSO REQUESTS AND RECEIVED PERCOCET 10/325MG X1 TAB FOR PAIN RATED 8/10. NO FURTHER NEEDS VOICED. RESTING IN OPEN CRIB AT BEDSIDE.
--- NOTE | 2018-12-02 18:16 | NUR ---
PAIN REASSESSMENT COMPLETED. PT RATES PAIN 3/10 AND TOLERABLE. ENCOURAGED PT TO CALL SPENCER DOWNEY FOR PRESCRIPTIONS TO BE MOVED TO ROOMING IN STATUS. PT IS AGREEABLE AND VERBALIZES UNDERSTANDING. NO FURTHER NEEDS VOICED AT THIS TIME.
--- NOTE | 2018-12-02 19:30 | NUR ---
DISCUSSED WITH N PLAN OF CARE FOR . PER N STAFF, WAS A POOR FEEDER TODAY AND PT SLEPT THROUGH A FEEDING THEREFORE DELAYING D/C HOME. N STAFF ALSO REPORT THAT PEDS WOULD LIKE A CM CONSULT PRIOR TO D/C R/T PT LIVING AT [facility] AND REPORTED H/O DRUG USE. WILL NOTIFY .
--- NOTE | 2018-12-02 19:34 | NUR ---
PT REPORTS THAT SHE IS UNABLE TO GET IN CONTACT WITH ANYONE FROM [facility] TO COME APPLICATION PERFORMANCE ENGINEER HER PAIN MEDICATION PRESCRIPTIONS. [facility] WITH NO ANSWER. WILL NOTIFY DR. CARDOZA OF NEED FOR CM CONSULT AND PT AND THIS RN BEING UNABLE CONTACT [facility] FOR ONCOLOGY COORDINATOR TO COME APPLICATION PERFORMANCE ENGINEER SCRIPTS TO BE FILLED.
--- NOTE | 2018-12-02 19:47 | NUR ---
PATIENT SITTING UP IN BED. STATES PAIN 7 OUT OF 10. PRN MOTRIN 600 MG ADMINISTERED PO AT THIS TIME. PATIENT DENIES ANY FURTHER NEEDS. BED IN LOWEST POSITION, SIDE RAILS UP X 2, C/L AND WATER WITHIN REACH.
--- NOTE | 2018-12-02 19:58 | NUR ---
DR. CARDOZA CONTACTED REGARDING REQUEST FOR CM CONSULT PER PEDS PRIOR TO D/C AND PT/STAFF BEING UNABLE TO GET IN TOUCH WITH [facility] NASREEN REP TO PICK OF PRESCRIPTIONS FOR HER TO ROOM IN. ORDERS REC'D TO CANCEL D/C ORDER.
--- NOTE | 2018-12-02 20:04 | NUR ---
PT UPDATED ON PLAN OF CARE AND VERBALIZES UNDERSTANDING AND AGREEMENT. DENIES QUESTIONS. CURRENTLY CONVERSING WITH FOB. DENIES NEEDS AT THIS TIME. BED IN LOW POSITION WITH UPPER SIDE RAILS RAISED X2. CALL LIGHT AND PHONE WITHIN REACH.
--- NOTE | 2018-12-02 20:50 | NUR ---
PATIENT SITTING UP IN BED HOLDING . INFANT PLACED IN OPEN CRIB ON BACK. ASSESSMENT AND VITAL SIGNS DONE AT THIS TIME. RESPIRATIONS AT EASE. LUNG SOUNDS CLEAR IN ALL ASENCIO. HEART REGULAR RATE AND RHYTHM. ABDOMEN SOFT AND TENDER TO TOUCH. BOWEL SOUNDS PRESENT IN ALL QUADRANTS. LOW UTERINE TRANSVERSE INCICION NOTED TO ABDOMEN. YANA INTACT. NO REDNESS, EDEMA, OR DRAINAGE NOTED. FUNDUS FIRM, 2 BELOW UMBILICUS. LOCHIA RUBRA AND SCANT AMOUNT NOTED ON BRIAN PAD. NO EDEMA NOTED TO EXTREMITIES. SL TO R WRIST. NO REDNESS OR EDEMA NOTED. PATIENT STATES PAIN 7 OUT OF 10. PATIENT REPOSITIONED IN BED. ICE PACK SUPPLIED. PATIENT DENIES ANY FURTHER NEEDS. BED IN LOWEST POSITION, SIDE RAILS UP X 2, C/L AND WATER WITHIN REACH.
[2018-12-02 20:51] VITALS: BP 141/68
--- NOTE | 2018-12-02 21:10 | NUR ---
UP TO SHOWER. TOWELS AND WASH CLOTHES PROVIDED. LINENS CHANGED. DENIES ADDITIONAL NEEDS. VERBALIZES USE OF CALL LIGHT PRN.
--- NOTE | 2018-12-02 21:37 | NUR ---
OUT OF SHOWER AND AMBULATORY IN [place]. STEADY GAIT NOTED. INFANT IN ROOM WITH FOB. DENIES NEEDS. PAIN 2-3/10, ABD SORENESS. DENIES NEED FOR INTERVENTION.
--- NOTE | 2018-12-02 22:11 | NUR ---
SITTING UP IN BED HOLDING . ICE PROVIDED PER PT REQUEST AND ROOM TEMP DECREASED PER REQUEST. DENIES NEEDS AT THIS TIME. BED IN LOW POSITION WITH UPPER SIDE RAILS RAISED X2. CALL LIGHT AND PHONE WITHIN REACH. WILL CONTINUE TO MONITOR AND ASSIST PRN.
--- NOTE | 2018-12-02 23:00 | NUR ---
PATIENT SITTING UP IN BED. STATES PAIN 4 OUT OF 10. PATIENT REPOSITIONED SELF IN BED. DENIES ANY FURTHER NEEDS. BED IN LOWEST POSITION, SIDE RAILS UP X 2, C/L AND WATER WITHIN REACH.
[2018-12-02 23:52] VITALS: BP 131/75
--- NOTE | 2018-12-02 23:52 | NUR ---
VSS. FUNDUS FIRM, MIDLINE AND U2 WITH SCANT RUBRA LOCHIA, NO CLOTS NOTED. DENIES PASSING CLOTS. REPORTS THAT SHE CONTINUES TO VOID AND PASS FLATUS WITHOUT DIFFICULTY. LOWER ABD TRANSVERSE INCISION REMAINS WELL APPROXIMATED WITH YANA INTACT. PERIPAD PLACED BACK OVER INCISION. REPORTS PAIN 3-4/10, DENIES NEED FOR INTERVENTION. BED IN LOW POSITION WITH UPPER SIDE RAILS RAISED X2. CALL LIGHT AND PHONE WITHIN REACH.
--- NOTE | 2018-12-03 02:15 | NUR ---
SITTING UP IN BED CARING FOR . ICE CHIPS PROVIDED PER PT REQUEST. DENIES NEEDS. STATES PAIN IS 4-5/10, PAIN MEDICATION OFFERED AND DECLINED AT THIS TIME. STATES SHE WILL ASK FOR PAIN MEDICATION WHEN NEEDED. GREG CRACKERS AND PUDDING ALSO PROVIDED. DENIES ADDITIONAL NEEDS. BED IN LOW POSITION WITH UPPER SIDE RAILS RAISED X2. CALL LIGHT AND PHONE WITHIN REACH. WILL CONTINUE TO MONITOR.
[2018-12-03 04:56] VITALS: BP 131/66
--- NOTE | 2018-12-03 04:56 | NUR ---
VSS. PAIN 5/10, ABD SORENESS AND INCISIONAL BURNING AND STINGING. PT REQUESTS PERCOCET AND MOTRIN. GIVEN PER ORDER AND REQUEST. FUNDUS REMAINS FIRM, MIDLINE AND U2 WITH SCANT RUBRA LOCHIA. ICE AND SODA PROVIDED PER PT REQUEST. DENIES ADDITIONAL NEEDS. INFANT IN NBN. BED IN LOW POSITION WITH UPPER SIDE RAILS RAISED X2. CALL LIGHT AND PHONE WITHIN REACH. WILL CONTINUE TO MONITOR AND ASSIST PRN.
--- NOTE | 2018-12-03 05:45 | NUR ---
PAIN REASSESSMENT COMPLETED. RESTING QUIETLY WITH EYES CLOSED. RESPIRATIONS REGULAR AND UNLABORED, NO S/S OF DISTRESS NOTED. BED IN LOW POSITION WITH UPPER SIDE RAILS RAISED X2. CALL LIGHT AND PHONE WITHIN REACH. WILL CONTINUE MONITOR AND ASSIST PRN.
--- NOTE | 2018-12-03 07:45 | NUR ---
UPON ENTERING ROOM, PT IS RESTING WITH EYES CLOSED, LYING IN BED, WITH HOB AT 30 DEGREES. PT IS HOLDING . PT AWAKENS EASILY WHEN SPOKEN TO. AM ASSESSMENT COMPLETED AFTER PLACING BABY IN CRIB, NO DISTRESS NOTED IN . PT DENIES NEEDS AT THIS TIME. MEDICATION ADM RECORD REVIEWED WITH PT. PT HAS BREAKFAST TRAY AT BEDSIDE, WITH [address] WALLACE ON BEDSIDE TABLE. SR UP X2, CALL LIGHT AND PHONE WITHIN REACH.
[2018-12-03 07:50] VITALS: BP 134/70
--- NOTE | 2018-12-03 09:50 | NUR ---
I have reviewed this patient and I concur with the Shift Assessment completed by the Licensed Practical Nurse today this shift.
--- NOTE | 2018-12-03 10:30 | NUR ---
PT IS SITTING UP IN THE BED, HOLDING INFANT. PT STATES SHE WILL CALL OUT KAIAKO [facility] [place] [facility]ORI LIGHT WHEN SHE FEELS SHE NEEDS SOMETHING ELSE FOR PAIN. SRUP X 2, CALL LIGHT AND PHONE WITHIN REACH. 2 CUPS OF ICE SERVED TO PT AT HER REQUEST. SRUP X2, CALL LIGHT AND PHONE WITHIN REACH.
--- NOTE | 2018-12-03 12:00 | NUR ---
DIETARY SERVES REGULAR LUNCH TRAY TO PT. PT REQUESTS 2 LARGE CUPS OF ICE, SERVED. PT IS SITTING UP IN THE BED HOLDING INFANT. PT DENIES ALL OTHER NEEDS AT THIS TIME. SR UP X2, CALL LIGHT AND PHONE WITHIN REACH.
--- NOTE | 2018-12-03 12:45 | NUR ---
SANTOS FROM CASE MANAGEMENT HERE TO SPEAK WITH PT.
--- NOTE | 2018-12-03 13:00 | NUR ---
REPORT GIVEN TO Saida KARIMI RN.
[2018-12-03] MEDS ORDERED: PERCOCET 7.5/321 TAB PO (13:15)
[2018-12-03] MEDS ORDERED: IBUPROFEN800 MG PO (13:16)
[2018-12-03] MEDS ORDERED: PROCARDIA10 MG PO (13:17)
--- NOTE | 2018-12-03 13:32 | NUR ---
REQUESTED PAIN MEDICATION FOR 7/10 ACHING/CRAMPING AT INCISION. JUST FINISHED BOTTLE FEEDING INFANT. STATES "SHE ATE THE WHOLE BOTTLE". HAS DC ORDERS HOME. INFANT CAN POSSIBLY BE DC'D WHEN TWO GOOD FEEDINGS. RH POSITIVE, RUBELLA IMMUNE, GBS POS, TDAP DUE IN 2025 PER [place] IMMUNIZATION RECORDS. DECLINES SMOKING CESSATION REFERRAL. SIDE RAILS UP X 2, CALL LIGHT IN REACH. IN BED WITH PT. REMINDED NOT TO FALL ASLEEP WITH INFANT IN BED. PERCET 5 MG WAS GIVEN PO FOR RELIEF OF PAIN.
[2018-12-03 13:37] VITALS: BP 139/66
--- NOTE | 2018-12-03 14:22 | MORECARE ---
CASE MANAGEMENT DISCHARGE SUMMARY PATIENT: JAMEY DEL CID UNIT: [id number] ADM DATE: 11/30/18 AGE: 23 : [birth year] SEX: F ROOM/BED: D.1278 AUTHOR: GLORIA MCGRATH PHYSICIAN: REFERRING PHYSICIAN: TATIANA MENDIETA MD DATE OF SERVICE: 12/03/18 Discharge Plan Patient Name: JAMEY DEL CID [facility] [facility] 1995 Planned Disposition: Other Type of Facility Anticipated Discharge Date: 12/03/18 Discharge Date: Expected LOS: 3 Initial Reviewer: [email or web address] Initial Review Date: 11/30/2018 Generated: 12/03/18 3:22 pm Patient Name: JAMEY DEL CID Page 92034 at 1422 All edits/amendments must be made on the electronic document DICTATION DATE: 12/03/181421 BAND INSTRUMENT REPAIRER: CYN 12/03/181421 RPT#: [id number] DC DATE: STATUS: ADM IN [facility] [address] [place] [address] END OF REPORT
--- NOTE | 2018-12-03 14:34 | MORECARE ---
CASE MANAGEMENT DISCHARGE SUMMARY PATIENT: JAMEY DEL CID UNIT: [id number] ADM DATE: 11/30/18 AGE: 23 : [birth year] SEX: F ROOM/BED: D.1278 AUTHOR: GLORIA MCGRATH PHYSICIAN: REFERRING PHYSICIAN: TATIANA MENDIETA MD DATE OF SERVICE: 12/03/18 Discharge Plan Patient Name: JAMEY DEL CID [facility] [facility] 1995 Planned Disposition: Other Type of Facility Anticipated Discharge Date: 12/03/18 Discharge Date: Expected LOS: 3 Initial Reviewer: [email or web address] Initial Review Date: 11/30/2018 Generated: 12/03/18 3:34 pm DCPIA - Discharge Planning Initial Assessment Updated by [email or web address]: Natividad Turner on 12/03/18 2:27 pm * Is the patient Alert and Oriented? Yes * How many steps to enter\exit or inside your home? ONE * PCP NO PCP DR MENDIETA PROBATE JUDGE * Pharmacy [facility] * Preadmission Environment Other * Other Environment [facility] * Facility Name [facility] * ADLs Independent * Equipment None * Other Equipment N/A * List name and contact numbers for known caregivers / representatives who currently or will assist patient after discharge: PASTOR ZULEIKA BOLDEN FIRE SAFETY MANAGER- [phone] * Community resources currently utilized Other * Please name any agencies selected above. [facility]EL [facility] * Additional services required to return to the preadmission environment? No * Can the patient safely return to the preadmission environment? Yes * Has this patient been hospitalized within the prior 30 days at any hospital? No Last DP export: 12/03/18 1:22 p Patient Name: JAMEY DEL CID Page 14313 at 1434 All edits/amendments must be made on the electronic document DICTATION DATE: 12/03/18 1433 LEATHER CARVER: CYN 12/03/18 1433 RPT#: [id number] DC DATE: STATUS: ADM IN [place] [id number] [facility] [place] [address] END OF REPORT
--- NOTE | 2018-12-03 15:10 | NUR ---
RESTING ON LEFT SIDE. IN CRIB. SAYS HER PAIN IS BETTER. DENIES NEEDING ANYTHING. SIDERAILS UP X 2, CALL LIGHT IN REACH. TO CALL IF ANYTHING IS NEEDED. SAYS SOMEONE IS COMING IN TO INSPECTOR RAW QUARTZ HER PRESCRIPTIONS.
--- NOTE | 2018-12-03 15:17 | MORECARE ---
CASE MANAGEMENT DISCHARGE SUMMARY PATIENT: JAMEY DEL CID UNIT: [id number] ADM DATE: 11/30/18 AGE: 23 : [birth year] SEX: F ROOM/BED: D.4838 AUTHOR: RAMILA,DOC PHYSICIAN: REFERRING PHYSICIAN: TATIANA MENDIETA MD DATE OF SERVICE: 12/03/18 Discharge Plan Patient Name: JAMEY DEL CID Facility: [facility]:[place] : 1995 Planned Disposition: Other Type of Facility Anticipated Discharge Date: 12/03/18 Discharge Date: Expected LOS: 3 Initial Reviewer: [email or web address] Initial Review Date: 11/30/2018 Generated: 12/03/18 4:16 pm Comments DCP- Discharge Planning Updated by [email or web address]: Natividad Turner on 12/03/18 2:[address] CASE MANGEMENT CONSULT FOR SOCIAL ISSUES ORDERED 1926 LAST PM. CM VISITED WITH THE PATIENT IN HER ROOM. INFANT AT THE BEDSIDE. INTRODUCED MYSELF EXPLAINED CASE MANAGEMENT ROLE. DISCUSSED MD REFERRAL. SHE LIVES AT [facility]. HER PLAN AT DISCHARGE IS TO RETURN TO THE FACILITY. THEY WILL PROVIDE TRANSPORTATION. SHE IS ALSO ASSISTED WITH [facility]. SHE HAS TWO OTHER CHILDREN THAT ARE WITH RELATIVES. HER SON 9 YEARS OLD IS STAYING WITH HIS DAD, HER DAUGHTER AGE 3 IS STAYING WITH HER PATERNAL GRANDMOTHER. [facility] WAS NOT INVOLVED. SHE SIGNED TEMPORARY CUSTODY TO THE CARE PROVIDERS. SHE IS IN THE [employer] PROGRAM. PASTOR TO IS THE ANIMAL CONTROL SPECIALIST. THEY PROVIDE COUNSELING, FOOD AND USP. SHE WILL SIGN UP FOR WIC IN THE COMING WEEK. SHE IS ALSO APPLYING FOR FOOD STAMPS. SHE HAS FORMULA, DIAPERS AND NECESSARY SUPPLIES. [facility] IS ASSISTING W/ NECESSITIES. SHE HAS A CAR SEAT. SHE WILL HAVE TRANSPORTATION FOR APPTS AND HER APPTS. DR GALVAN WILL BE THE PEDIATRIC MD FOR THE INFANT. INFANT IS BEING FORMULA FED. THE FATHER RAGHU BLANK WILL BE INVOLVED WITH THE INFANT. HE WORKS WITH [employer]. HE STAYS AT [facility]. MR BLANK IS 33 YEARS OLD. Pharmacy - [facility] P[facility]- NONE EMERGENCY CONTACT - [facility]- GRANDMOTHER 4 YEARS AGO ACCORDING TO THE PATIENT. PATIENT HAS GOOD SUPPORT. THE PROGRAMS ARE WELL RESPECTED IN THE COMMUNITY. THE PATIENTSTATES SHE IS PLEASED AND HAPPY WITH THE PROGRAM. POSSIBLE DISCHARGE TODAY. CM ADVISED I AM AVAILABLE IF NEEDED. DCPIA - Discharge Planning Initial Assessment Updated by [id number]: Natividad Turner on 12/03/18 2:27 pm * Is the patient Alert and Oriented? Yes * How many steps to enter\exit or inside your home? ONE * PCP NO PCP DR MENDIETA PARKING RAMP ATTENDANT * Pharmacy [facility] * Preadmission Environment Other * Other Environment [facility] * Facility Name [facility] * ADLs Independent * Equipment None * Other Equipment N/A * List name and contact numbers for known caregivers / representatives who currently or will assist patient after discharge: PASTOR ZULEIKA BOLDEN ANIMAL CONTROL SPECIALIST- [phone] * Community resources currently utilized Other * Please name any agencies selected above. [facility] * Additional services required to return to the preadmission environment? No * Can the patient safely return to the preadmission environment? Yes * Has this patient been hospitalized within the prior 30 days at any hospital? No Last DP export: 12/03/18 1:34 p Patient Name: JAMEY DEL CID Page 61014 at 1517 All edits/amendments must be made on the electronic document DICTATION DATE: 12/03/181515 NOTEMAN: CYN 12/03/181515 RPT#: [id number] DC DATE: STATUS: ADM IN [facility] [address] [place] [address] END OF REPORT
--- NOTE | 2018-12-03 16:22 | NUR ---
SITTING UP IN BED HOLDING . GETTING READY TO BOTTLEFEED . WAITING TO HEAR ABOUT DC HOME. DENIES NEEDING ANYTHING. SIDERAILS UP X 2, CALL LIGHT IN REACH. DENIES NEEDING ANYTHING AT THIS TIME.
--- NOTE | 2018-12-03 17:14 | NUR ---
INFANT CURRENTLY BEING DISCHARGED BY NURSERY NURSE. WILL DC PT AFTER THIS IS COMPLETED.
--- NOTE | 2018-12-03 17:50 | NUR ---
INFANT HAS BEEN DC'D. PT DC TEACHING COMPLETED TO INCLUDE VERBAL AND WRITTEN INFORMATION ON CARE, POST-OP CARE, S&S INFECTION, PP DEPRESSION, BREAST CARE, BOTTLEFEEDING, MEDICATION ADMINISTRATION, DANGER SIGNS AND FOLLOW-UP. VERBALIZED UNDERSTANDING. MEMBERSHIP ADVISOR HERE FROM [facility] TO SNELLER HAND PRESCRIPTIONS TO TAKE TO PT PHARMACY, THIS IS PER FACILITY POLICY. PT NOW WAITING ON FOB TO ARRIVE AND WILL TAKE HER BACK TO [facility]. PRESCRIPTIONS GIVEN TO PATIENT WHO GAVE TO MEMBERSHIP ADVISOR.
--- NOTE | 2018-12-03 19:00 | NUR ---
DC'D VIA WHEELCHAIR TO [email or web address]. ALL BELONGINGS REMOVED FROM ROOM. IN CARSEAT. HAD DC INSTRUCTIONS AND F/U APPOINTMENT CARD.
== END 2018-12-03 19:00 | disposition home or self-care (01) | DRG 788 ==
LOC: D.LDO 15:20 → D.LD 20:25 → D.SDCHOLD 12-01 16:32 → D.LD 12-01 16:41
PROVIDERS: Obstetrics & Gynecology; ADMIT Obstetrics & Gynecology; ATTEND Obstetrics & Gynecology
PROC: 10D00Z1 Extraction of Products of Conception, Low, Open Approach (ICD-10-PCS; principal; 2018-11-30)
DX: O11.4 Pre-existing hypertension with pre-eclampsia, complicating childbirth (principal); Z3A.36 36 weeks gestation of pregnancy; Z37.0 Single live birth; O34.211 Maternal care for low transverse scar from previous cesarean delivery; O76 Abnormality in fetal heart rate and rhythm complicating labor and delivery; N73.6 Female pelvic peritoneal adhesions (postinfective)